=== PATIENT | male | born 1950 | race Caucasian/White ===

== ENCOUNTER 2016-06-23 11:39 | Emergency (ER) | payer OTHER, MEDICAID ==
[2016-06-23 13:46] VITALS: TEMP 98.1; O2SAT 94
[2016-06-23] MEDS ORDERED: IPRATROPIUM/ALBUTEROL 3 ML DEYVIAL IH ONE (14:04)
--- NOTE | 2016-06-23 14:04 | UCPHY ---
H & P Time Seen by Provider: 06/23/16 13:52 Patient Type: New HPI/ROS: This patient is nonverbal due to developmental delay with history of cough over the past 24 hours associated with his increasing chest congestion. The patient has associated fatigue per his half backer who accompanies him and provide a history. The patient lives with a half backer. He has had subjective fevers associated with the symptoms and room air O2 sat was 88% at home per the half backer. ROS: Limited due to patient's nonverbal status. No chills. No respiratory distress. No vomiting. No skin rash. 10 point ROS is otherwise negative. Past Medical/Surgical History: Developmental delay Previous pneumonia Hypertension Smoking Status: Never smoked Physical Exam: General Appearance: Pleasant 66-year-old male Alert, no distress. Eyes: Pupils equal and round no pallor or injection. ENT, Mouth: Mucous membranes moist. Respiratory: Diminished breath sounds at the bases with rhonchi bilaterally. No rales the patient is not taking deep breaths. Cardiovascular: Regular rate and rhythm. No murmur gallop or rub Gastrointestinal: Abdomen is soft and nontender, no masses, bowel sounds normal. Neurological: Alert. No focal deficits are appreciated. Skin: Warm and dry, no rashes. Musculoskeletal: Neck is supple nontender. Extremities are symmetrical, full range of motion. Psychiatric: Patient is pleasant. Nonverbal. Follows commands. DIFFERENTIAL DIAGNOSIS: After history and physical exam differential diagnosis was considered for influenza, bronchitis, pneumonia Constitutional: Initial Vital Signs Temperature (C) 36.7 C 06/23/16 13:36 Heart Rate 57 L 06/23/16 13:36 Respiratory Rate 20 06/23/16 13:36 Blood Pressure 116/82 H 06/23/16 13:36 O2 Sat (%) 94 06/23/16 13:36 O2 Delivery Mode Room Air Allergies/Adverse Reactions: milk Allergy (Mild, Verified 06/23/16 13:34) DROOLS, MUCOUS PRODUCTION, INCREASED SECRETIONS PEANUTS Allergy (Intermediate, Uncoded 06/23/16 13:34) COLSD SORES SEASONAL, CATS Allergy (Mild, Uncoded 06/23/16 13:34) INCREASED MUCOUS, SNEEZING Home Medications: Medication Instructions Recorded ALENDRONATE SODIUM [Fosamax 70 mg] 70 mg PO 10/28/10 Cetirizine HCl [Zyrtec] 10 mg PO DAILY 10/28/10 Diltiazem Xr [Dilacor Xr] 120 mg PO DAILY 10/28/10 Oxybutynin Chloride Xl [Ditropan 5 mg PO DAILY 10/28/10 Xl] Albuterol [Proventil Neb] 3 ml IH Q4 PRN #25 deyvial 06/23/16 Klonopin 06/23/16 Oseltamivir Phosphate [Tamiflu 75 75 mg PO BID #6 cap 06/23/16 mg (*)] MDM/Departure - MDM Diagnostics: Chest x-ray: Bibasilar atelectasis. Appreciate no other focal abnormalities. Medications Given: Discontinued Medications Albuterol/Ipratropium (Duoneb) 3 ml IH EDNOW ONE Stop: 06/23/16 14:05 Last Admin: 06/23/16 14:48 Dose: 3 ml ED Course/Re-evaluation: Influenza a is positive I counseled his half backer regarding this. The patient appears well clinically here. I think that the findings on chest x-ray air atelectasis due to his shallow breaths. DuoNeb here with decreased cough increased aeration. His half backer informed me that he has a neb machine at home stool start him on albuterol and recommended Tamiflu given his other comorbidities. - Depart Disposition: Home, Routine, Self-Care Clinical Impression: Influenza A Clinical Impression: (Ruled Out): inluenza Condition: Good Instructions: Influenza (ED) Additional Instructions: Diagnosis: Influenza A Plan: Ibuprofen for fevers Albuterol inhaler if needed for cough, wheeze or shortness of breath Prescriptions: Albuterol [Proventil Neb] 3 ml IH Q4 PRN #25 deyvial PRN Reason: bronchitis Oseltamivir Phosphate [Tamiflu 75 mg (*)] 75 mg PO BID #6 cap Referrals: [facility],. [Primary Care Provider] - As per Instructions - PQRS PQRS Measurement: 134: Depression screening and followup, PRIME MD-PHQ2 (12 years and older) Over the last 2 weeks, how often have you been bothered by any of the following problems? 1. Feeling down, depressed, or hopeless? 2. Little interest or pleasure in doing things? Not done because patient is nonverbal 130: Documentation of medications. Reviewed all patient medications, doses, route and frequency with his half backer 226: Do you smoke? [No.] 47: 65 and older: Advanced care planning. Patient designates surrogate decision maker as [Patient has advanced directive.] 51: 18 years old and older with diagnosis of COPD, spirometry performance. NA 52: 18 years old and older with COPD and symptoms of COPD or FEV1<60% predicted prescribed a B Agonist. NA
--- NOTE | 2016-06-23 15:07 | DX ---
PA and Lateral Chest June 23, 2016 1356 hours Clinical Indications: Cough and low oxygen saturations. Comparison: September 19, 2015. Findings: There are bibasilar consolidative changes versus bibasilar atelectatic changes. Heart size is upper limits of normal for an AP film. Aortic contour is slightly tortuous without aneurysm. Airways are mildly thickened. Impression: Bibasilar atelectatic or consolidative changes.
[2016-06-23 15:19] VITALS: BP 116/67; PULSE 63; RESP 16
== END 2016-06-23 15:15 | disposition home or self-care (01) ==
LOC: CED 11:39
DX: J10.1 Influenza due to other identified influenza virus with other respiratory manifestations (principal)
CPT/HCPCS: 71020; G0463; 87400-PO; 99203-PO

== ENCOUNTER → 2018-09-24 | Outpatient (CLI) | payer OTHER, MEDICAID | LOC: CIMAGING 11:24 | PROVIDERS: ATTEND Family Medicine | DX: J18.9 Pneumonia, unspecified organism (principal) | CPT/HCPCS: 71046-PO ==